=== PATIENT | female | born 1990 | race Caucasian/White ===

== ENCOUNTER 2018-01-10 18:39 | Inpatient (IN) | payer OTHER ==
[2018-01-10 19:30] VITALS: BMI 40.4
[2018-01-10 20:02] LABS: Amnisure Test RUPTURE DETECTED (No Rupture)
[2018-01-10 20:03] LABS: Amnisure Internal Control QC ACCEPTABLE (ACCEPTABLE)
[2018-01-10] MEDS ORDERED: Ondansetron HCl/PF 4 MG/2 ML Vial IVP PRN (20:44)
[2018-01-10] MEDS ORDERED: NS / Oxytocin 40 units/1000ml 1,000 ML IV PRN (20:44)
[2018-01-10] MEDS ORDERED: HYDROcodone/Acetaminophen 5/325 mg Tablet PO PRN ×2 (20:44)
[2018-01-10] MEDS ORDERED: Lidocaine 1% (PF) 30 ML VIAL SC PRN (20:44)
[2018-01-10] MEDS ORDERED: Ibuprofen 800 MG TAB PO PRN (20:44)
[2018-01-10] MEDS ORDERED: Penicillin G Potassium 5 MILL.UNITS in Sodium Chloride 0.9% 100 ML IVPB SCH (20:45)
[2018-01-10] MEDS ORDERED: Lactated Ringer's 1,000 ML IV SCH (20:45)
[2018-01-10] MEDS ORDERED: Dextrose 5%-Lactated Ringers 1,000 ML IV SCH (20:45)
[2018-01-10] MEDS ORDERED: Insulin Glargine 30 UNITS in Pre-Filled Syringe 1 EACH SC SCH (21:00)
[2018-01-10] MEDS: Penicillin G 2.5 MILL.units 2.5 MILL.UNITS in Premix Bag 1 BAG IVPB SCH (21:30)
[2018-01-10 21:31] LABS: Hemoglobin 12.4 g/dL (12.0-16.0); Mean Corpuscular HGB CONC 33.1 g/dL (32.0-36.0); Mean Corpuscular Hemoglobin 28.8 pg (27.0-31.0); Mean Platelet Volume 8.5 fL (7.4-10.4); Platelet Count 232 thou/uL (130-400); RBC Distribution Width 12.7 % (11.5-14.5); White Blood Cell (WBC) Count 10.8 thou/uL (4.8-10.8)
[2018-01-10] MEDS: Betamet Acet/Betamet Na Ph 30 MG/5 ML VIAL IM SCH (21:41)
[2018-01-10] MEDS: metFORMIN 500 MG TAB PO SCH (21:41)
[2018-01-10 22:13] LABS: Syphilis Antibody Nonreactive (Nonreactive); Syphilis Antibody Index 0.04 S/CO (<1.00 Non-Reactive)
[2018-01-10] MEDS ORDERED: Permethrin 5% Cream 60 GM TUBE TOP SCH (22:15)
[2018-01-10] MEDS ORDERED: NS w/ Oxytocin 10 units 500 ML IV SCH (22:15)
[2018-01-10 23:08] LABS: HBSAg Index 0.18 S/CO (0-0.99); Hep B Surf Ag Non-Reactive S/CO (NonReactive)
[2018-01-10] MEDS ORDERED: DISCONTINUE ALL PREVIOUS NARCOTICS FS SCH (23:45)
[2018-01-10] MEDS ORDERED: Bupivacaine 0.5% 20 ML, fentaNYL Citrate/PF 400 MCG in Sodium Chloride 0.9% 72 ML EPIDURAL SCH (23:45)
[2018-01-11] MEDS ORDERED: diphenhydrAMINE 50 MG/ML VIAL IM PRN (01:09)
[2018-01-11] MEDS ORDERED: Eucerin (Mineral Oil/Petrolatum,White) 30 gm Jar TOP PRN (01:09)
[2018-01-11] MEDS ORDERED: Promethazine HCl 25 MG SUPP PR PRN (01:09)
[2018-01-11] MEDS ORDERED: Naloxone HCl 0.4 mg/ml Vial IVP PRN ×2 (01:09)
[2018-01-11] MEDS ORDERED: Promethazine HCl 25 MG/ML VIAL IM PRN (01:09)
[2018-01-11] MEDS ORDERED: diphenhydrAMINE 50 MG/ML VIAL IVP PRN (01:09)
[2018-01-11] MEDS ORDERED: Ondansetron HCl/PF 4 MG/2 ML Vial IVP PRN (01:09)
[2018-01-11] MEDS ORDERED: diphenhydrAMINE 25 MG CAP PO PRN (01:09)
[2018-01-11] MEDS ORDERED: Bupivacaine 0.25% 10 ML VIAL EPIDURAL PRN (01:09)
[2018-01-11] MEDS ORDERED: Zolpidem Tartrate 5 MG TAB PO PRN (01:09)
[2018-01-11] MEDS ORDERED: Communication Order-Pharmacy FS SCH ×2 (01:15)
[2018-01-11] MEDS ORDERED: fentaNYL Citrate/PF 1,250 MCG, Bupivacaine 25 ML in Sodium Chloride 0.9% 250 ML 200 ML EPIDURAL SCH (01:15)
[2018-01-11] MEDS: Penicillin G 2.5 MILL.units 2.5 MILL.UNITS in Premix Bag 1 BAG IVPB SCH ×4 (01:35→09:10)
[2018-01-11] MEDS: metFORMIN 500 MG TAB PO SCH ×2 (09:07→16:12)
[2018-01-11] MEDS: Betamet Acet/Betamet Na Ph 30 MG/5 ML VIAL IM SCH (09:07)
[2018-01-11] MEDS ORDERED: Bupivacaine 0.25% HCL 30 ML VIAL ONE (11:11)
[2018-01-11] MEDS ORDERED: Bupivacaine/Epinephrine 0.25% 30 ML VIAL ONE (11:11)
--- NOTE | 2018-01-11 11:51 | DN ---
DATE OF DELIVERY: 01/11/2018 PREOPERATIVE DIAGNOSIS: A 36-week intrauterine with spontaneous rupture of membranes. POSTOPERATIVE DIAGNOSES: 1. A 36-week intrauterine with spontaneous rupture of membranes. 2. Gestational diabetes on insulin. 3. Recently diagnosed scabies. 4. Obesity. SURGEON: Deep Higgins M.D. ANESTHESIA: Epidural. QBL: 292 mL. BRIEF DELIVERY SUMMARY: This is a 27-year-old G1, now P1 who presented with spontaneous rupture of m embranes at 36 weeks and 0 days gestation. She received penicillin for GBS unknown status, Pitocin f or induction of labor and Celestone to promote lung maturity. She progressed very quickly to c omplete and pushing. She delivered a live female infant, head OA. Mouth and nares were bulb suction ed at perineum and the infant was placed on mother's abdomen. Due to bradycardia with pushing, vacuum extraction was performed. The vacuum was applied when the baby's head was at +3 station and suction was taken into the green zone. With the next contraction, downward traction was applied with advancement of the head with each push. Total vacuum application time was 3 minutes with 90 s econds of pulling with successful delivery of the baby. There was a nuchal cord x1 and a body cord x 1 which were responsible for bradycardia with pushing. Notably, the baby rotated 180 degrees f rom OP to OA right as she was . At that time, I released my hold on the vacuum and allow the baby to auto rotate and then resume pulling on the vacuum to deliver the rest of the head. Shoulder s and body easily followed. The umbilical cord was doubly clamped and cut and cord blood was collect ed and sent for analysis. Please see the nurse's notes for infant Apgars. Bag Machine Set Up Operator was present at delivery given status and vacuum extraction. Mom and baby were left with the nurse in ex cellent condition attempting to breast feed. There was a first degree vaginal laceration which was r epaired with 2-0 Vicryl suture under epidural anesthesia with excellent hemostasis.
[2018-01-11] MEDS ORDERED: Adacel (T-DAP) 0.5 ML VIAL IM ONE (15:11)
[2018-01-11] MEDS ORDERED: Benzocaine/Menthol 20-0.5% 60 ML CAN TOP PRN (15:11)
[2018-01-11] MEDS ORDERED: Bisacodyl 10 MG SUPP PR PRN (15:11)
[2018-01-11] MEDS ORDERED: HYDROcodone/Acetaminophen 5/325 mg Tablet PO PRN (15:11)
[2018-01-11] MEDS ORDERED: Lanolin Ointment 7 GM TUBE TOP PRN (15:11)
[2018-01-11] MEDS ORDERED: NS / Oxytocin 40 units/1000ml 1,000 ML IV SCH (15:11)
[2018-01-11] MEDS ORDERED: Milk Of Magnesia 30 ML UDCUP PO PRN (15:11)
[2018-01-11] MEDS: Ibuprofen 800 MG TAB PO SCH (15:42)
[2018-01-11] MEDS: Ferrous Sulfate 325 MG TAB PO SCH (16:14)
[2018-01-11] MEDS ORDERED: Non-Formulary Item 1 EACH (Insulin Detemir [Levemir Flextouch] 30 UNIT) SQ SCH (21:00)
[2018-01-11] MEDS: Docusate Calcium (SURFAK) 240 MG CAP PO SCH (21:03)
[2018-01-11] MEDS: Insulin Glargine 30 UNITS in Pre-Filled Syringe 1 EACH SC SCH (21:06)
[2018-01-12] MEDS: Ibuprofen 800 MG TAB PO SCH ×3 (01:07→17:46)
[2018-01-12] MEDS: metFORMIN 500 MG TAB PO SCH ×2 (09:42→17:47)
[2018-01-12] MEDS: Ferrous Sulfate 325 MG TAB PO SCH ×2 (09:43→18:37)
[2018-01-12] MEDS: Docusate Calcium (SURFAK) 240 MG CAP PO SCH (09:44)
--- NOTE | 2018-01-12 16:20 | PDOC.PP ---
Post Progress Note Post Day #: 1 Subjective: Doing well, no c/o, pumping and working on getting baby to latch, lochia normal. PO intake tolerated: yes Flatus: yes Ambulation: yes Vital Signs (12 hours) Temp Pulse Resp BP Pulse Ox 01/12/18 08:00 98.6 F 68 16 117/72 99 01/12/18 04:40 97.8 F 72 20 114/69 Weight Weight 258 lb - Physical Examination General: NAD Cardiovascular: no m/r/g, RRR Respiratory: clear to auscultation bilaterally, non-labored breathing Abdominal: + bowel sounds, lochia, no distention, appropriately TTP Psychiatric: A&Ox3, normal affect Result Diagrams: 01/10/18 21:17 Additional Labs: Post Labs Blood Type O POSITIVE 01/10/18 21:17 Hep Bs Antigen Non-Reactive S/CO (NonReactive) 01/10/18 21:17 - Assessment/Plan PP day 1 Doing well Routine care D/C home tomorrow
[2018-01-12] MEDS: Insulin Glargine 30 UNITS in Pre-Filled Syringe 1 EACH SC SCH (21:27)
[2018-01-13] MEDS: Ibuprofen 800 MG TAB PO SCH ×3 (04:24→13:19)
[2018-01-13] MEDS: Docusate Calcium (SURFAK) 240 MG CAP PO SCH ×2 (04:25→09:38)
[2018-01-13 08:12] VITALS: BP 114/64; TEMP 97.6
[2018-01-13] MEDS: Ferrous Sulfate 325 MG TAB PO SCH ×2 (08:58→17:18)
--- NOTE | 2018-01-13 09:22 | PDOC.PP ---
Post Progress Note Post Day #: 2 Subjective: Doing well, colostrum increasing with pumping. PO intake tolerated: yes Flatus: yes Ambulation: yes Vital Signs (12 hours) Temp Pulse Resp BP 01/13/18 08:12 97.6 F 76 16 114/64 Weight Weight 258 lb - Physical Examination General: NAD Cardiovascular: no m/r/g, RRR Respiratory: clear to auscultation bilaterally, non-labored breathing Abdominal: + bowel sounds, lochia, no distention, appropriately TTP Psychiatric: A&Ox3, normal affect Result Diagrams: 01/10/18 21:17 Additional Labs: Post Labs Blood Type O POSITIVE 01/10/18 21:17 Hep Bs Antigen Non-Reactive S/CO (NonReactive) 01/10/18 21:17 (1) Vaginal delivery Code(s): O80 - ENCOUNTER FOR FULL-TERM UNCOMPLICATED DELIVERY Status: Acute - Assessment/Plan Routine care D/C today May need to B&B depending on baby's bili later today. F/U in 6 weeks.
[2018-01-13] MEDS: metFORMIN 500 MG TAB PO SCH ×2 (09:37→16:59)
== END 2018-01-13 19:30 | disposition home or self-care (01) | DRG 775 ==
LOC: L&D/OP 18:39 → L&D 20:40 → 3SW 01-11 12:55
PROVIDERS: ADMIT Family Medicine; ATTEND Family Medicine
PROC: 10D07Z6 Extraction of Products of Conception, Vacuum, Via Natural or Artificial Opening (ICD-10-PCS; principal; 2018-01-10)
PROC: 0HQ9XZZ Repair Perineum Skin, External Approach (ICD-10-PCS; 2018-01-10)
DX: O42.02 Full-term premature rupture of membranes, onset of labor within 24 hours of rupture (principal); Z68.41 Body mass index [BMI] 40.0-44.9, adult; O24.424 Gestational diabetes mellitus in childbirth, insulin controlled; Z3A.36 36 weeks gestation of pregnancy; Z37.0 Single live birth; O99.214 Obesity complicating childbirth; E66.9 Obesity, unspecified; O70.0 First degree perineal laceration during delivery; O69.81X0 Labor and delivery complicated by cord around neck, without compression, not applicable or unspecified; O69.82X0 Labor and delivery complicated by other cord entanglement, without compression, not applicable or unspecified
CPT/HCPCS: 36415; 36416; 51702; 76815; 84112; 85027; 86780; 86850; 86900; 86901; 87081; 87340; 90715; 99285; J0702; J2540; J3010; J3490; J7050; S0020

== ENCOUNTER 2022-12-23 22:35 | Emergency (ER) | payer MEDICAID ==
[2022-12-23 23:41] LABS: #Eosinphils 0.1 thou/uL (0.0-0.7); #Neutrophils 10.8 thou/uL (1.40-6.50); %Basophils 0.3 % (0.0-1.0); %Eosinophils 0.6 % (0.0-10.0); %Monocytes 6.5 % (0.0-10.0); Hematocrit 40.3 % (36.0-47.0); Hemoglobin 13.9 g/dL (12.0-16.0); Mean Corpuscular HGB CONC 34.5 g/dL (32.0-36.0); Mean Corpuscular Hemoglobin 30.4 pg (27.0-31.0); Mean Corpuscular Volume 88.2 fl (78.0-98.0); Mean Platelet Volume 10.4 fL (7.4-10.4); Platelet Count 248 10x3/uL (130-400); RBC Distribution Width 12.1 % (11.5-14.5); Red Blood Cell (RBC) Count 4.57 mill/uL (4.20-5.40); White Blood Cell (WBC) Count 15.5 10x3/uL (4.8-10.8)
[2022-12-24 00:05] LABS: Acetaminophen Less than 10 mcg/mL (10.0-30.0); Alcohol Less than 10.0 mg/dL (Less than 10); Salicylate Less than 8.0 mg/dL (15.0-30.0)
[2022-12-24 00:06] LABS: ALT (SGPT) 30 U/L (8-55); AST (SGOT) 25 U/L (5-34); Alkaline Phosphatase 77 U/L (40-110); Anion Gap 15 mmol/L (10-20); BUN (Urea Nitrogen) 7 mg/dL (7.0-18.7); Bilirubin, Total 0.5 mg/dL (0.2-1.2); CK (CPK) 50 U/L (29-168); Calc. Creatinine Clearance 0 mL/min (70-130); Calcium 9.2 mg/dL (7.8-10.44); Carbon Dioxide 22 mmol/L (22-29); Chloride 101 mmol/L (98-107); Estimated GFR 98; Globulin 2.6 g/dL (2.4-3.5); Glucose 177 mg/dL (70-105); Potassium 3.4 mmol/L (3.5-5.1); Protein, Total 6.6 g/dL (6.0-8.3); Sodium 135 mmol/L (136-145)
[2022-12-24] MEDS ORDERED: Potassium Chloride 20 MEQ TAB ONE (01:04)
[2022-12-24 01:43] LABS: Magnesium 1.6 mg/dL (1.6-2.6)
[2022-12-24 06:22] LABS: Bilirubin Negative (Negative); Blood, Urine Trace (Negative); CAUTI Indications for Culture Alt mental st,lethar; Clarity Clear (Clear); Glucose, Urine (Dipstick) Normal (Negative); Ketone, Urine Trace mg/dL (Negative); Leukocyte Negative Leu/uL (Negative); Nitrite Negative (Negative); Protein, Urine (Dipstick) Negative (Neg-Trace); RBC/HPF 0-3 HPF (0-3); Specific Gravity, Urine 1.006 (1.002-1.036); Urobilinogen Normal mg/dL (Less than 2); WBC/HPF 0-3 HPF (0-3); pH, Urine 6.5 (5.0-9.0)
[2022-12-24 06:23] LABS: Bacteria/HPF 1+ HPF (None Seen); Pregnancy Test - Urine (BHCG) Negative (Negative); Pregu Control Background? CLEAR/WHITE (CLR/WHITE); Pregu Control Bar Appear? YES (CONTROL BAR); Specific Gravity 1.006 (1.002-1.036)
[2022-12-24 06:24] LABS: Urine Culture Reflex No No
[2022-12-24 06:30] LABS: Amphetamine Not Detected (NotDetected); Barbiturates Screen Not Detected (NotDetected); Benzodiazepine Screen Not Detected (NotDetected); Cocaine Metabolite Screen Not Detected (NotDetected); Methadone Not Detected (NotDetected); Methamphetamine Not Detected (NotDetected); Opiate Screen Not Detected (NotDetected); Oxycodone Screen Not Detected (NotDetected); Phencyclidine (PCP) Not Detected (NotDetected); THC/Cannabinoid Screen Detected (NotDetected); Tricyclic Screen Not Detected (NotDetected)
== END 2022-12-24 10:46 ==
LOC: ERS 22:35
DX: T43.292A Poisoning by other antidepressants, intentional self-harm, initial encounter (principal); R45.851 Suicidal ideations; F17.210 Nicotine dependence, cigarettes, uncomplicated
CPT/HCPCS: 36415; 80053; 80306; 80307; 81001; 81025; 82550; 83735; 84443; 85025; 93005; 94760